=== PATIENT | male | born 1950 | race Caucasian/White ===

== ENCOUNTER 2022-04-08 14:36 | Outpatient (CLI) | payer MEDICARE, OTHER | END 2022-04-08 14:37 | disposition home or self-care (01) | LOC: CSHULT 14:36 | PROVIDERS: ATTEND Family Medicine | DX: R55 Syncope and collapse (principal); M25.511 Pain in right shoulder | CPT/HCPCS: 93880 ==

== ENCOUNTER 2022-04-29 08:39 | Outpatient (CLI) | payer MEDICARE, OTHER | END 2022-04-29 08:40 | disposition home or self-care (01) | LOC: CSHCT 08:39 | PROVIDERS: ATTEND Family Medicine | DX: R51.9 Headache, unspecified (principal) | CPT/HCPCS: 70450 ==